=== PATIENT | female | born 1950 | race Caucasian/White ===

== ENCOUNTER 2018-03-09 11:01 | Outpatient (CLI) | payer MEDICARE, OTHER ==
--- NOTE | 2018-03-09 16:44 | XRAY Report ---
Reason: PAIN L MID FOOT Procedure Date: 03/09/2018 Accession Number: [id number] / [id number] Procedure: XR - Foot 3 View LT CPT Code: FULL RESULT: EXAM: LEFT FOOT RADIOGRAPHY EXAM DATE: 03/09/2018 11:15 AM. CLINICAL HISTORY: Pain left mid foot. COMPARISON: None. TECHNIQUE: 3 views. FINDINGS: Sclerotic and degenerative changes are seen in the midfoot with sclerosis and volume loss predominantly in the navicular bone. No acute fracture or dislocation is identified. IMPRESSION: Sclerosis and volume loss of the navicular. If there is clinical concern for avascular necrosis ([facility]), MRI is the recommended modality with nuclear medicine bone scan an excellent option if the patient cannot undergo MRI. [facility]
== END 2018-03-09 11:02 | disposition home or self-care (01) ==
LOC: DI 11:01
PROVIDERS: ATTEND Podiatrist
DX: M79.672 Pain in left foot (principal)